=== PATIENT | female | born 1950 | race Caucasian/White ===

== ENCOUNTER 2017-09-08 10:07 | Emergency (ER) | payer OTHER ==
[~2017-09-08] VITALS: Ht 162.6 cm; Wt 122.4 kg
[~2017-09-08 10:07] MED LIST: CITA20TA4 PO; HYDR50 PO; HYDRO2.5%T TOP; IRONTAB5 PO; LISI-363 PO; QUEN12.5 OR
[2017-09-08 10:14] VITALS: BP 210/87; PULSE 67; RESP 16; TEMP 98.7; O2SAT 97
[2017-09-08] MEDS ORDERED: ALPR.5 PO (10:28)
[2017-09-08] MEDS ORDERED: DESV5TAB PO (10:28)
[2017-09-08] MEDS ORDERED: CARB100C CHEW (10:28)
[2017-09-08] MEDS ORDERED: TYLETAB34 PO (11:16)
--- NOTE | 2017-09-08 11:17 | RADRPT ---
EXAM DATE/TIME: 09/08/2017 10:48 CORRECTION Corrected on: September 08, 2017; [facility] COMPARISON: No previous studies available for comparison. INDICATIONS : Tripped and fell, right lateral foot pain MEDICAL HISTORY : None. SURGICAL HISTORY : None. ENCOUNTER: Initial ACUITY: 3 days PAIN SCORE: 7/10 LOCATION: Right lateral foot FINDINGS: There is 8 minimally displaced fracture proximal phalanx fifth toe. No other fractures appreciated. CONCLUSION: Fracture proximal fifth toe. Jose Ramon Locke MD FACR on September 08, 2017 at 11:13 Board Certified Radiologist. This report was verified electronically. Jose Ramon Locke MD FACR on September 08, 2017 at 11:30 Board Certified Radiologist. This report was verified electronically.
--- NOTE | 2017-09-08 11:18 | PD ---
HPI Chief Complaint: Musculoskeletal Complaint Time Seen by Provider: 10:18 Travel History International Travel<30 days: No Contact w/Intl Traveler<30days: No Traveled to known affect area: No History of Present Illness HPI This is a 66-year-old female here with right foot pain after she tripped on a Toy yesterday evening. Did not fall to the ground. No head injury or loss of consciousness. No paresthesia or weakness of the 70. She has pain with weightbearing on the foot which is relieved with rest. She is also complaining of mild URI-like symptoms 3 days. The symptoms include nasal congestion, sore throat, cough. Denies fever, chills, myalgias. PFSH Past Medical History Anemia: Yes Anxiety: Yes Depression: Yes Gastrointestinal Disorders: Yes (BARIATRIC SURGERY 1997, "TUMMY TUCK") Hypertension: Yes Medical other: Yes (TMJ) Tetanus Vaccination: > 5 Years Influenza Vaccination: No ?: Not Menopausal: Yes Past Surgical History Abdominal Surgery: Yes (gastric bypass and tummy tuck) Cholecystectomy: Yes Tonsillectomy: Yes Social History Alcohol Use: Yes (rarely) Tobacco Use: No Substance Use: No Allergies-Medications (Allergen,Severity, Reaction): Coded Allergies: No Known Allergies (Unverified Adverse Reaction, Unknown, 09/08/17) Reported Meds & Prescriptions Reported Meds & Active Scripts Active Reported Carbamazepine 100 Mg Chew 100 Mg CHEW TID Khedezla 24 HR (Desvenlafaxine Succinate) 50 Mg Tab 50 Mg PO DAILY Review of Systems Except as stated in HPI: all other systems reviewed are Neg General / Constitutional: No: Fever Physical Exam Narrative GENERAL: Alert and nontoxic appearing 66-year-old female SKIN: Warm and dry. No rash HEAD: Normocephalic. Atraumatic EYES: No injection or drainage. Pupils equal, round, reactive. EARS/NOSE/THROAT: No TM erythema. Clear nasal discharge. Mild pharyngeal erythema without tonsilar hypertrophy or exudate. NECK: Supple, trachea midline. No meningismus CARDIOVASCULAR: Regular rate and rhythm RESPIRATORY: Breath sounds equal bilaterally. No accessory muscle use. No wheezing, rales, rhonchi. GASTROINTESTINAL: Abdomen soft, non-tender, nondistended. MUSCULOSKELETAL: No cyanosis. Right foot: Tenderness over the distal aspect of the fifth metatarsal. No deformity. Minimal swelling. Patient can flex and extend all toes. 2+ dorsal pedis pulse. Brisk cap refill. Data Data Last Documented VS Vital Signs Date Time Temp Pulse Resp B/P (MAP) Pulse Ox O2 Delivery O2 Flow Rate FiO2 09/08/17 10:14 98.7 67 16 210/87 (128) 97 Orders Orders Foot, Complete ([id number]) (09/08/17 ) Splint Or Brace Apply/Monitor (09/08/17 11:09) MDM Medical Decision Making Medical Screen Exam Complete: Yes Emergency Medical Condition: Yes Differential Diagnosis Metatarsal fracture, toe fracture, sprain, contusion, URI Narrative Course This is a 66-year-old female here with right foot pain after she twisted the foot yesterday evening. The extremity is neurovascularly intact. No deformity. She also has mild URI-like illness. I do not suspect influenza. X- ray show a proximal fifth phalanx fracture. Patient was put in a postop shoe. Crutches were offered. Pain medication. Rest, ice, elevate the extremity. 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 Diagnosis Primary Impression: Fracture of proximal phalanx of lesser toe of right foot Qualified Codes: S92.514A - Nondisplaced fracture of proximal phalanx of right lesser toe(s), initial encounter for closed fracture Additional Impression: URI (upper respiratory infection) Qualified Codes: J06.9 - Acute upper respiratory infection, unspecified Referrals: Mario Belle DPM Additional Instructions: Rest, ice, elevate the extremity. Postop shoe as directed. Crutches or cane for weightbearing as needed. Make a follow-up appointment with Dr. Belle. Scripts Acetaminophen-Codeine (Tylenol-Codeine #3) 300-30 mg Tab 1-2 TAB PO Q6H Y for PAIN, #12 TAB 0 Refills Prov: Ayde Lo 09/08/17 Ayde Lo Sep 08, 2017 11:18
== END 2017-09-08 11:39 | disposition home or self-care (01) ==
LOC: PHEFT 10:07
DX: S92.511A Displaced fracture of proximal phalanx of right lesser toe(s), initial encounter for closed fracture (principal); J06.9 Acute upper respiratory infection, unspecified; I10 Essential (primary) hypertension; F32.9 Major depressive disorder, single episode, unspecified; F41.9 Anxiety disorder, unspecified; W22.8XXA Striking against or struck by other objects, initial encounter; Z98.84 Bariatric surgery status; Z79.899 Other long term (current) drug therapy
CPT/HCPCS: 73630; 99283; L3260

== ENCOUNTER 2017-10-08 16:37 | Emergency (ER) | payer OTHER ==
[~2017-10-08] VITALS: Ht 162.6 cm; Wt 126.0 kg
[2017-10-08 16:37] VITALS: BP 179/76; PULSE 129; RESP 24; TEMP 97.9; O2SAT 97
[~2017-10-08 16:37] MED LIST changes: +ALPR.5 PO; +CARB100C CHEW; -CITA20TA4 PO; +DESV5TAB PO; -HYDR50 PO; -HYDRO2.5%T TOP; -IRONTAB5 PO; -LISI-363 PO; -QUEN12.5 OR; +TYLETAB34 PO
[2017-10-08] MEDS ORDERED: SODIUM CHLORIDE 0.9% FLUSH 10 ML FLUSH IV FLUSH PRN (16:45)
[2017-10-08] MEDS ORDERED: DILTIAZEM HCL 25 MG/5 ML VIAL IV PUSH ONE (16:45)
[2017-10-08 16:59] VITALS: BP 115/73; PULSE 80; RESP 16; O2SAT 95
[2017-10-08] MEDS ORDERED: RIVAROXABAN 15 MG TAB PO ONE (17:00)
[2017-10-08] MEDS ORDERED: DILTIAZEM-CD 240 MG CAP ER PO ONE (17:00)
[2017-10-08] MEDS ORDERED: ASPIRIN 81 MG CHEW TAB PO ONE (17:00)
[2017-10-08] MEDS ORDERED: SODIUM CHLORIDE 0.9% FLUSH 10 ML FLUSH IVF PRN (17:00)
[2017-10-08] MEDS ORDERED: CARD180C5 PO (17:04)
[2017-10-08 17:06] VITALS: BP 115/73; PULSE 91; RESP 18; TEMP 97.9; O2SAT 95
[2017-10-08] MEDS ORDERED: XARE20TA PO (17:06)
--- NOTE | 2017-10-08 17:06 | PD ---
HPI . Shortness of breath Chief Complaint: Shortness of breath Time Seen by Provider: 16:43 Travel History International Travel<30 days: No Contact w/Intl Traveler<30days: No History of Present Illness HPI This patient presents with a 3 week history of shortness of breath. She especially has dyspnea on exertion. She states that she is not short of breath at rest. She had no idea that her heart was beating too fast. However, she states that she seen as an outpatient for an iron infusion 3 weeks ago and was found to be tachycardic. She was advised to come to the emergency department at that time for evaluation but did not do so. She attributed her symptoms to anxiety. She states that she presented to us today simply because her symptoms have persisted. There was no no acute change that brought her in today. PFSH Past Medical History Anemia: Yes Anxiety: Yes Depression: Yes Gastrointestinal Disorders: Yes (BARIATRIC SURGERY 1997, "TUMMY TUCK") Hypertension: Yes Menopausal: Yes Past Surgical History Abdominal Surgery: Yes (gastric bypass and tummy tuck) Cholecystectomy: Yes Tonsillectomy: Yes Social History Alcohol Use: Yes (rarely) Tobacco Use: No Substance Use: No Allergies-Medications (Allergen,Severity, Reaction): Coded Allergies: No Known Allergies (Unverified Adverse Reaction, Unknown, 10/08/17) Reported Meds & Prescriptions Reported Meds & Active Scripts Active Xarelto (Rivaroxaban) 20 Mg Tab 20 Mg PO DAILY Cardizem CD 24 HR (Diltiazem CD 24 HR) 180 Mg Caper 180 Mg PO DAILY Reported Carbamazepine 100 Mg Chew 100 Mg CHEW TID Xanax (Alprazolam) 0.5 Mg Tab 0.5 Mg PO DAILY PRN Khedezla 24 HR (Desvenlafaxine Succinate) 50 Mg Tab 50 Mg PO DAILY Review of Systems Except as stated in HPI: all other systems reviewed are Neg Respiratory: Positive: Shortness of Breath Physical Exam Narrative GENERAL: Awake and alert. SKIN: warm/dry. Normal color and turgor. HEAD: Normocephalic. Atraumatic. EYES: Pupils equal and round. No scleral icterus. No injection or drainage. ENT: No nasal bleeding or discharge. Mucous membranes pink and moist. NECK: Trachea midline. Full range of motion without pain.. CARDIOVASCULAR: Irregular rhythm with a rate variable between about 110 and 150. RESPIRATORY: No accessory muscle use. Clear to auscultation. Breath sounds equal bilaterally. GASTROINTESTINAL: Abdomen soft. Nontender. Bowel sounds present. Nondistended. MUSCULOSKELETAL: No obvious deformities. NEUROLOGICAL: Awake and alert. No obvious cranial nerve deficits. Motor grossly within normal limits. Normal speech. PSYCHIATRIC: Appropriate mood and affect; insight and judgment normal. Data Data Last Documented VS Vital Signs Date Time Temp Pulse Resp B/P (MAP) Pulse Ox O2 Delivery O2 Flow Rate FiO2 10/08/17 18:36 88 18 149/78 (101) 96 Room Air 10/08/17 17:22 2.00 10/08/17 17:06 97.9 Orders Orders Ecg Monitoring (10/08/17 16:43) Blood Pressure (10/08/17 16:43) Iv Access Insert/Monitor (10/08/17 16:43) Oximetry (10/08/17 16:43) Vital Signs (10/08/17 16:43) Diltiazem Inj (Cardizem Inj) (10/08/17 16:45) Sodium Chloride 0.9% Flush (Ns Flush) (10/08/17 16:45) Basic Metabolic Panel (Bmp) (10/08/17 16:51) Complete Blood Count With Diff (10/08/17 16:51) Magnesium (Mg) (10/08/17 16:51) Prothrombin Time / Inr (Pt) (10/08/17 16:51) Act Partial Throm Time (Ptt) (10/08/17 16:51) Troponin I (10/08/17 16:51) Chest, Single Ap (10/08/17 16:51) Aspirin Chew (Aspirin Chew) (10/08/17 17:00) Sodium Chloride 0.9% Flush (Ns Flush) (10/08/17 17:00) Thyroid Stimulating Hormone (10/08/17 16:51) Rivaroxaban (Xarelto) (10/08/17 17:00) Diltiazem Cd (Cardizem Cd) (10/08/17 17:00) Rivaroxaban (Xarelto) (10/08/17 17:15) Labs Laboratory Tests Test 10/08/17 17:00 White Blood Count 5.6 TH/MM3 Red Blood Count 4.03 MIL/MM3 Hemoglobin 11.1 GM/DL Hematocrit 33.9 % Mean Corpuscular Volume 84.3 FL Mean Corpuscular Hemoglobin 27.6 PG Mean Corpuscular Hemoglobin Concent 32.8 % Red Cell Distribution Width 18.8 % Platelet Count 250 TH/MM3 Mean Platelet Volume 8.7 FL Neutrophils (%) (Auto) 69.0 % Lymphocytes (%) (Auto) 18.9 % Monocytes (%) (Auto) 9.9 % Eosinophils (%) (Auto) 1.3 % Basophils (%) (Auto) 0.9 % Neutrophils # (Auto) 3.7 TH/MM3 Lymphocytes # (Auto) 1.1 TH/MM3 Monocytes # (Auto) 0.6 TH/MM3 Eosinophils # (Auto) 0.1 TH/MM3 Basophils # (Auto) 0.1 TH/MM3 CBC Comment DIFF FINAL Differential Comment Prothrombin Time 10.7 SEC Prothromb Time International Ratio 1.1 RATIO Activated Partial Thromboplast Time 26.0 SEC Blood Urea Nitrogen 12 MG/DL Creatinine 0.68 MG/DL Random Glucose 93 MG/DL Calcium Level 8.5 MG/DL Magnesium Level 2.1 MG/DL Sodium Level 142 MEQ/L Potassium Level 4.1 MEQ/L Chloride Level 106 MEQ/L Carbon Dioxide Level 28.5 MEQ/L Anion Gap 8 MEQ/L Estimat Glomerular Filtration Rate 87 ML/MIN Troponin I LESS THAN 0.02 NG/ML Thyroid Stimulating Hormone 3rd Gen 2.200 uIU/ML MDM Medical Decision Making Medical Screen Exam Complete: Yes Emergency Medical Condition: Yes Interpretation(s) EKG shows atrial fibrillation. No acute ischemic changes. Differential Diagnosis Differential diagnosis of dyspnea includes but is not limited to congestive heart failure, pneumonia, wheezing, pneumothorax, pulmonary embolism Narrative Course This patient presents with the complaint of dyspnea, especially dyspnea on exertion. This has been ongoing for at least 3 weeks. On arrival here, she was found to be in atrial fibrillation with a rapid ventricular response. She had no idea that she had an irregular heart rhythm. She denies any previous similar history. An IV was established and she was given a Cardizem bolus. Her heart rate has quickly come down to about 80 and she states that she feels much better. I have ordered an oral dose of Cardizem along with a dose of Xarelto. Chest x- ray and lab work are in process. CBC & BMP Diagram 10/08/17 17:00 Calcium Level 8.5, Magnesium Level 2.1 trop < 0.02 TSH 2.2 CXR: 1. There is an interstitial changes bilaterally which could be chronic versus edema. 2. Moderate cardiomegaly. 3. No focal parenchymal infiltrates The chest x-ray was independently viewed by me. The patient has been ambulated about the department. She no longer has dyspnea on exertion. She will be discharged to home with prescriptions for Cardizem and Xarelto and instructions to keep her appointment with her primary care provider this week. Diagnosis Primary Impression: Atrial fibrillation with rapid ventricular response Referrals: Delaney Valentine MD 3 days Patient Instructions: A-fib (Atrial Fibrillation) (DC), General Instructions Med/Other Pt SpecificInfo: Prescription(s) given Scripts Rivaroxaban (Xarelto) 20 Mg Tab 20 MG PO DAILY for Blood Clot Prevention, #30 TAB 0 Refills Prov: Lakeshia Restrepo MD 10/08/17 Diltiazem CD 24 HR (Cardizem CD 24 HR) 180 Mg Caper 180 MG PO DAILY, #30 CAP 0 Refills Prov: Lakeshia Restrepo MD 10/08/17 Disposition: 01 DISCHARGE HOME Condition: Stable Lakeshia Restrepo MD Oct 08, 2017 17:06
[2017-10-08 17:09] LABS: AUTOMATED NEUTROPHIL # 3.7 TH/MM3 (1.8-7.7); BASOPHIL # 0.1 TH/MM3 (0-0.2); BASOPHIL % 0.9 % (0.0-2.0); EOSINOPHIL # 0.1 TH/MM3 (0-0.4); EOSINOPHIL % 1.3 % (0.0-4.0); HEMATOCRIT 33.9 % (35.0-46.0); HEMOGLOBIN 11.1 GM/DL (11.6-15.3); LYMPH % 18.9 % (9.0-44.0); LYMPHOCYTE # 1.1 TH/MM3 (1.0-4.8); MEAN CELL VOLUME 84.3 FL (80.0-100.0); MEAN CORPUSCULAR HEMOGLOBIN 27.6 PG (27.0-34.0); MEAN CORPUSCULAR HGB CONC 32.8 % (32.0-36.0); MEAN PLATELET VOLUME 8.7 FL (7.0-11.0); MONO % 9.9 % (0.0-8.0); MONOCYTE # 0.6 TH/MM3 (0-0.9); PLATELET COUNT 250 TH/MM3 (150-450); RED BLOOD COUNT 4.03 MIL/MM3 (4.00-5.30); RED CELL DISTRIBUTION WIDTH 18.8 % (11.6-17.2); WHITE BLOOD COUNT 5.6 TH/MM3 (4.0-11.0)
[2017-10-08 17:15] LABS: CHLORIDE 106 MEQ/L (98-107); SODIUM (NA) 142 MEQ/L (136-145)
[2017-10-08] MEDS ORDERED: RIVAROXABAN 20 MG TAB PO ONE (17:15)
[2017-10-08 17:17] LABS: CALCIUM 8.5 MG/DL (8.5-10.1)
[2017-10-08 17:18] LABS: BICARBONATE 28.5 MEQ/L (21.0-32.0); BLOOD UREA NITROGEN 12 MG/DL (7-18); GLUCOSE,RANDOM 93 MG/DL (74-106); MAGNESIUM 2.1 MG/DL (1.5-2.5)
[2017-10-08 17:20] LABS: INTERNATIONAL NORMALIZED RATIO 1.1 RATIO; PROTHROMBIN TIME - PATIENT 10.7 SEC (9.8-11.6)
[2017-10-08 17:21] LABS: CREATININE 0.68 MG/DL (0.50-1.00); GLOMERULAR FILTRATION RATE 87 ML/MIN (>89)
[2017-10-08 17:22] VITALS: BP 134/81; PULSE 71; RESP 16; O2SAT 95
[2017-10-08 17:26] LABS: TROPONIN I LESS THAN 0.02 NG/ML (0.02-0.05)
--- NOTE | 2017-10-08 18:11 | RADRPT ---
EXAM DATE/TIME: 10/08/2017 17:44 [facility] COMPARISON: No previous studies available for comparison. INDICATIONS : Shortness of breath. MEDICAL HISTORY : None. SURGICAL HISTORY : None. ENCOUNTER: Initial ACUITY: 2 days PAIN SCORE: 0/10 LOCATION: Bilateral chest FINDINGS: A single view of the chest demonstrates the lungs to be symmetrically aerated without evidence of mas s, infiltrate or effusion. There is increased changes are seen bilaterally. The heart size is enlarge d.. Osseous structures are intact. CONCLUSION: 1. There is an interstitial changes bilaterally which could be chronic versus edema. 2. Moderate cardiomegaly. 3. No focal parenchymal infiltrates. Patricio Mckeon MD on October 08, 2017 at 18:08 Board Certified Radiologist. This report was verified electronically.
[2017-10-08 18:36] VITALS: BP 149/78; PULSE 88; RESP 18; O2SAT 96
--- NOTE | 2017-10-09 15:27 | EKG ---
Date Performed: 10/08/2017 Time Performed: 16:41:37 PTAGE: 67 years EKG: ATRIAL FIBRILLATION WITH RAPID VENTRICULAR RESPONSE BORDERLINE LEFT AXIS DEVIATION NONSPECI FIC T-WAVE ABNORMALITY Compared to previous tracing, atrial fibrillation is new. Clinical correlation is recommended ABNORMAL RHYTHM ECG PREVIOUS TRACING : 02/13/2013 21.49 DOCTOR: Abram Veronica Interpretating Date/Time 10/09/2017 15:26:48
== END 2017-10-08 19:04 | disposition home or self-care (01) ==
LOC: PHED 16:37
DX: I48.91 Unspecified atrial fibrillation (principal); I51.7 Cardiomegaly; R06.02 Shortness of breath; R94.31 Abnormal electrocardiogram [ECG] [EKG]; D64.9 Anemia, unspecified; F41.9 Anxiety disorder, unspecified; F32.9 Major depressive disorder, single episode, unspecified; I10 Essential (primary) hypertension; Z79.899 Other long term (current) drug therapy
CPT/HCPCS: 71045; 80048; 83735; 84443; 84484; 85025; 85610; 85730; 93005; 96374

== ENCOUNTER 2017-10-11 11:00 | Inpatient (IN) | payer OTHER, MEDICARE ==
[~2017-10-11] VITALS: Ht 162.6 cm; Wt 125.7 kg
[2017-10-11] VITALS (9 sets, daily range): BP systolic 111–154; BP diastolic 71–99; PULSE 81–130; RESP 16–20; TEMP 96.6–98.5; O2SAT 97–100
[~2017-10-11 11:00] MED LIST changes: +CARD180C5 PO; -TYLETAB34 PO; +XARE20TA PO
[2017-10-11] MEDS ORDERED: SODIUM CHLORIDE 0.9% FLUSH 10 ML FLUSH IVF PRN (11:15)
[2017-10-11] MEDS ORDERED: DILTIAZEM HCL 25 MG/5 ML VIAL IV PUSH ONE (11:15)
--- NOTE | 2017-10-11 11:23 | PD ---
HPI Chief Complaint: Cardiac Complaint Time Seen by Provider: 11:07 Travel History International Travel<30 days: No Contact w/Intl Traveler<30days: No Traveled to known affect area: No History of Present Illness HPI This is a 67-year-old female who presents for dyspnea and atrial fibrillation. On October 08, the patient was seen in the emergency department and diagnosed with atrial fibrillation. She received a single dose of IV Cardizem and had improvement in her heart rate. She was discharged on Cardizem and Xarelto. Patient states she has been compliant with these medications. She states that she does still have some dyspnea with exertion. No dyspnea at rest. She does have mild chest tightness if she becomes emotionally stressed. She is not otherwise having chest pain. No diaphoresis. She has had increase in bilateral lower extremity edema. She has gained 6 pounds in a week. She saw her primary physician today and was referred to the emergency department. Symptoms are moderate in severity. Onset gradual. Partially alleviated by Cardizem. She denies associated fever, chills, cough, congestion. PFSH Past Medical History Anemia: Yes Atrial Fibrillation: Yes Anxiety: Yes Depression: Yes Cardiovascular Problems: Yes (heart murmur) Diminished Hearing: No Gastrointestinal Disorders: Yes (BARIATRIC SURGERY 1997, "TUMMY TUCK") Hypertension: Yes Immunizations Current: Yes Menopausal: Yes Past Surgical History Abdominal Surgery: Yes (gastric bypass and tummy tuck) Cholecystectomy: Yes Tonsillectomy: Yes Social History Alcohol Use: Yes (rarely) Tobacco Use: No Substance Use: No Allergies-Medications (Allergen,Severity, Reaction): Coded Allergies: No Known Allergies (Unverified Adverse Reaction, Unknown, 10/11/17) Reported Meds & Prescriptions Reported Meds & Active Scripts Active Xarelto (Rivaroxaban) 20 Mg Tab 20 Mg PO DAILY Cardizem CD 24 HR (Diltiazem CD 24 HR) 180 Mg Caper 180 Mg PO DAILY Reported Carbamazepine 100 Mg Chew 100 Mg CHEW TID Xanax (Alprazolam) 0.5 Mg Tab 0.5 Mg PO DAILY PRN Khedezla 24 HR (Desvenlafaxine Succinate) 50 Mg Tab 50 Mg PO DAILY Review of Systems Except as stated in HPI: all other systems reviewed are Neg Physical Exam Narrative GENERAL: Alert, well nourished, well appearing patient resting on the bed in no acute distress. Vital Signs reviewed SKIN: Focused skin assessment warm/dry. HEAD: Atraumatic. Normocephalic. EYES: Pupils equal and round. No scleral icterus. No injection or drainage. ENT: No nasal bleeding or discharge. Mucous membranes pink and moist. NECK: Trachea midline. No JVD. Spontaneous, painless full range of motion with no meningismus CARDIOVASCULAR: Tachycardic with an irregularly irregular rhythm. No murmur appreciated. Extremities warm and well perfused with bounding peripheral pulses. Symmetric bilateral lower extremity edema to mid smith. RESPIRATORY: No accessory muscle use. Clear to auscultation. Breath sounds equal bilaterally. Breathing easily and speaking in full sentences GASTROINTESTINAL: Abdomen soft, non-tender, nondistended. Normal bowel sounds. No rigid, rebound, guarding MUSCULOSKELETAL: No obvious deformities. No clubbing. No cyanosis. Compartments are soft NEUROLOGICAL: Awake and alert. No obvious cranial nerve deficits. Motor grossly within normal limits. Normal speech. Sensation intact. Normal gait Data Data Last Documented VS Vital Signs Date Time Temp Pulse Resp B/P (MAP) Pulse Ox O2 Delivery O2 Flow Rate FiO2 10/11/17 11:54 81 10/11/17 11:53 18 97 Room Air 10/11/17 11:15 97.0 Orders Orders Electrocardiogram (10/11/17 11:15) B-Type Natriuretic Peptide (10/11/17 11:15) Ckmb (Isoenzyme) Profile (10/11/17 11:15) Complete Blood Count With Diff (10/11/17 11:15) Comprehensive Metabolic Panel (10/11/17 11:15) Magnesium (Mg) (10/11/17 11:15) Prothrombin Time / Inr (Pt) (10/11/17 11:15) Act Partial Throm Time (Ptt) (10/11/17 11:15) Troponin I (10/11/17 11:15) Ecg Monitoring (10/11/17 11:15) Bilateral Bp Monitoring (10/11/17 11:15) Iv Access Insert/Monitor (10/11/17 11:15) Oximetry (10/11/17 11:15) Sodium Chloride 0.9% Flush (Ns Flush) (10/11/17 11:15) Chest, Pa & Lat (10/11/17 11:15) Diltiazem Inj (Cardizem Inj) (10/11/17 11:15) Furosemide Inj (Lasix Inj) (10/11/17 12:15) Labs Laboratory Tests Test 10/11/17 11:25 White Blood Count 4.4 TH/MM3 Red Blood Count 4.25 MIL/MM3 Hemoglobin 11.0 GM/DL Hematocrit 35.5 % Mean Corpuscular Volume 83.5 FL Mean Corpuscular Hemoglobin 25.8 PG Mean Corpuscular Hemoglobin Concent 30.9 % Red Cell Distribution Width 18.1 % Platelet Count 261 TH/MM3 Mean Platelet Volume 8.2 FL Neutrophils (%) (Auto) 76.9 % Lymphocytes (%) (Auto) 13.5 % Monocytes (%) (Auto) 7.9 % Eosinophils (%) (Auto) 1.0 % Basophils (%) (Auto) 0.7 % Neutrophils # (Auto) 3.5 TH/MM3 Lymphocytes # (Auto) 0.6 TH/MM3 Monocytes # (Auto) 0.3 TH/MM3 Eosinophils # (Auto) 0.0 TH/MM3 Basophils # (Auto) 0.0 TH/MM3 CBC Comment DIFF FINAL Differential Comment Prothrombin Time 11.1 SEC Prothromb Time International Ratio 1.1 RATIO Activated Partial Thromboplast Time 28.0 SEC Blood Urea Nitrogen 12 MG/DL Creatinine 0.74 MG/DL Random Glucose 85 MG/DL Total Protein 7.1 GM/DL Albumin 3.5 GM/DL Calcium Level 8.5 MG/DL Magnesium Level 2.0 MG/DL Alkaline Phosphatase 149 U/L Aspartate Amino Transf (AST/SGOT) 34 U/L Alanine Aminotransferase (ALT/SGPT) 34 U/L Total Bilirubin 0.5 MG/DL Sodium Level 139 MEQ/L Potassium Level 4.5 MEQ/L Chloride Level 105 MEQ/L Carbon Dioxide Level 29.3 MEQ/L Anion Gap 5 MEQ/L Estimat Glomerular Filtration Rate 79 ML/MIN Total Creatine Kinase 63 U/L Troponin I LESS THAN 0.02 NG/ML B-Type Natriuretic Peptide 291 PG/ML MDM Medical Decision Making Medical Screen Exam Complete: Yes Emergency Medical Condition: Yes Medical Record Reviewed: Yes Interpretation(s) EKG shows atrial fibrillation with rapid ventricular response. Rate 119. No STEMI Laboratory Tests Test 10/11/17 11:25 White Blood Count 4.4 TH/MM3 Red Blood Count 4.25 MIL/MM3 Hemoglobin 11.0 GM/DL Hematocrit 35.5 % Mean Corpuscular Volume 83.5 FL Mean Corpuscular Hemoglobin 25.8 PG Mean Corpuscular Hemoglobin Concent 30.9 % Red Cell Distribution Width 18.1 % Platelet Count 261 TH/MM3 Mean Platelet Volume 8.2 FL Neutrophils (%) (Auto) 76.9 % Lymphocytes (%) (Auto) 13.5 % Monocytes (%) (Auto) 7.9 % Eosinophils (%) (Auto) 1.0 % Basophils (%) (Auto) 0.7 % Neutrophils # (Auto) 3.5 TH/MM3 Lymphocytes # (Auto) 0.6 TH/MM3 Monocytes # (Auto) 0.3 TH/MM3 Eosinophils # (Auto) 0.0 TH/MM3 Basophils # (Auto) 0.0 TH/MM3 CBC Comment DIFF FINAL Differential Comment Prothrombin Time 11.1 SEC Prothromb Time International Ratio 1.1 RATIO Activated Partial Thromboplast Time 28.0 SEC Blood Urea Nitrogen 12 MG/DL Creatinine 0.74 MG/DL Random Glucose 85 MG/DL Total Protein 7.1 GM/DL Albumin 3.5 GM/DL Calcium Level 8.5 MG/DL Magnesium Level 2.0 MG/DL Alkaline Phosphatase 149 U/L Aspartate Amino Transf (AST/SGOT) 34 U/L Alanine Aminotransferase (ALT/SGPT) 34 U/L Total Bilirubin 0.5 MG/DL Sodium Level 139 MEQ/L Potassium Level 4.5 MEQ/L Chloride Level 105 MEQ/L Carbon Dioxide Level 29.3 MEQ/L Anion Gap 5 MEQ/L Estimat Glomerular Filtration Rate 79 ML/MIN Total Creatine Kinase 63 U/L Troponin I LESS THAN 0.02 NG/ML B-Type Natriuretic Peptide 291 PG/ML Last 24 hours Impressions Chest X-Ray 10/11/17 1115 Signed Impressions: Service Date/Time: Wednesday, October 11, 2017 11:29 - CONCLUSION: Cardiomegaly with mild interstitial edema consistent with failure. Jose Ramon Locke MD FACR Differential Diagnosis Atrial fibrillation, electrolyte abnormality, CHF, fluid overload, unstable angina Narrative Course The patient was placed on the monitoring analyst. IV access was established. EKG , labs, imaging were performed. Patient was given IV Cardizem with improvement in heart rate. Her workup reveals atrial fibrillation and fluid overload. Plan for admission for further evaluation and care. I reviewed the results of the workup with her. Diagnosis Primary Impression: Atrial fibrillation with rapid ventricular response Additional Impression: CHF (congestive heart failure) Qualified Codes: I50.9 - Heart failure, unspecified Sandra Soria MD Oct 11, 2017 11:23
[2017-10-11 11:30] LABS: AUTOMATED NEUTROPHIL # 3.5 TH/MM3 (1.8-7.7); BASOPHIL % 0.7 % (0.0-2.0); HEMATOCRIT 35.5 % (35.0-46.0); LYMPH % 13.5 % (9.0-44.0); LYMPHOCYTE # 0.6 TH/MM3 (1.0-4.8); MEAN CELL VOLUME 83.5 FL (80.0-100.0); MEAN CORPUSCULAR HEMOGLOBIN 25.8 PG (27.0-34.0); MEAN CORPUSCULAR HGB CONC 30.9 % (32.0-36.0); MEAN PLATELET VOLUME 8.2 FL (7.0-11.0); MONO % 7.9 % (0.0-8.0); MONOCYTE # 0.3 TH/MM3 (0-0.9); NEUT % 76.9 % (16.0-70.0); PLATELET COUNT 261 TH/MM3 (150-450); RED BLOOD COUNT 4.25 MIL/MM3 (4.00-5.30); RED CELL DISTRIBUTION WIDTH 18.1 % (11.6-17.2); WHITE BLOOD COUNT 4.4 TH/MM3 (4.0-11.0)
--- NOTE | 2017-10-11 11:40 | RADRPT ---
EXAM DATE/TIME: 10/11/2017 11:29 [facility] COMPARISON: No previous studies available for comparison. INDICATIONS : Chest pressure. Short of breath x few weeks. Lower extremity edema. MEDICAL HISTORY : Heart murmur. A-fib. SURGICAL HISTORY : Tonsillectomy. Cholecystectomy. Gastric bypass. ENCOUNTER: Initial ACUITY: 1 day PAIN SCORE: 0/10 LOCATION: chest FINDINGS: Cardiomegaly with mild interstitial edema consistent with congestive failure. No pleural effusion. No inflammatory infiltrate. The portion of the bony skeleton visualized is unremarkable. CONCLUSION: Cardiomegaly with mild interstitial edema consistent with failure. Jose Ramon Locke MD FACR on October 11, 2017 at 11:39 Board Certified Radiologist. This report was verified electronically.
[2017-10-11 11:41] LABS: CHLORIDE 105 MEQ/L (98-107); SODIUM (NA) 139 MEQ/L (136-145)
[2017-10-11 11:45] LABS: ALBUMIN 3.5 GM/DL (3.4-5.0); BICARBONATE 29.3 MEQ/L (21.0-32.0); BLOOD UREA NITROGEN 12 MG/DL (7-18); CALCIUM 8.5 MG/DL (8.5-10.1); GLUCOSE,RANDOM 85 MG/DL (74-106)
[2017-10-11 11:46] LABS: INTERNATIONAL NORMALIZED RATIO 1.1 RATIO; PROTHROMBIN TIME - PATIENT 11.1 SEC (9.8-11.6)
[2017-10-11 11:48] LABS: ALT (GPT) 34 U/L (10-53); AST (GOT) 34 U/L (15-37); CREATININE 0.74 MG/DL (0.50-1.00); GLOMERULAR FILTRATION RATE 79 ML/MIN (>89)
[2017-10-11 11:49] LABS: TOTAL BILIRUBIN ADULT 0.5 MG/DL (0.2-1.0)
[2017-10-11 11:50] LABS: TOTAL PROTEIN 7.1 GM/DL (6.4-8.2)
[2017-10-11 11:51] LABS: ALKALINE PHOSPHATASE 149 U/L (45-117)
[2017-10-11 11:53] LABS: TROPONIN I LESS THAN 0.02 NG/ML (0.02-0.05)
[2017-10-11] MEDS ORDERED: FUROSEMIDE 20 MG/2 ML VIAL IV PUSH ONE (12:15)
--- NOTE | 2017-10-11 15:08 | HHI.HP ---
HPI Service [facility] Primary Care Physician Teja Sorensen Do, MD Admission Diagnosis Atrial fibrillation with rapid ventricular response; Acute CHF Diagnoses: Chief Complaint: swelling Travel History International Travel<30 Days: No Contact w/Intl Traveler <30 Da: No Traveled to Known Affected Are: No History of Present Illness 67-year-old white female being admitted for suspected acute systolic congestive heart failure. Patient was in her usual state of health until the last 2 weeks or so when she noted that her lower extremity edema became more prominent and more constant. She recently came to the emergency department was diagnosed with A. fib and discharged on Cardizem and Xarelto. She went to see her gas engine operator generators today but instead saw her gas engine operator generators nurse who noted that her heart rate was fluctuating up and down beyond 100. She was referred to the emergency department. In the ER she was noted to be tachycardic Pass 120. EKG which independently reviewed shows tachycardia which could either be sinus rhythm given that there are evident P waves versus atrial fibrillation. They administered IV Cardizem which slowed down the patient's heart rate substantially. Review of Systems Except as stated in HPI: all other systems reviewed are Neg Past Family Social History Past Medical History Anemia, A. fib Allergies: Coded Allergies: No Known Allergies (Unverified Adverse Reaction, Unknown, 10/11/17) Family History CAD Social History Denies ever smoking Light social drinking in the past Physical Exam Vital Signs Vital Signs Date Time Temp Pulse Resp B/P (MAP) Pulse Ox O2 Delivery O2 Flow Rate FiO2 10/11/17 14:22 96.6 119 16 121/84 (96) 99 10/11/17 14:10 92 18 138/89 (105) 10/11/17 12:56 98 18 151/99 (116) 98 Room Air 10/11/17 12:40 89 18 111/71 (84) 98 Room Air 10/11/17 11:54 81 10/11/17 11:53 100 18 126/97 (107) 97 Room Air 138/80 (99) 10/11/17 11:15 130 20 154/85 (108) 10/11/17 11:15 97.0 Room Air 10/11/17 11:15 97 10/11/17 11:03 98.5 88 20 97 Physical Exam VS: afebrile GENERAL: Standing up looking at the window, no acute distress SKIN: Warm and dry. EYES: No scleral icterus. No injection or drainage. ENT: No nasal bleeding or discharge. Mucous membranes pink and moist. CARDIOVASCULAR: regular rate and irregular rhythm. no murmurs RESPIRATORY: No accessory muscle use. Clear to auscultation. Breath sounds equal bilaterally. GASTROINTESTINAL: Abdomen soft, non-tender, nondistended. Extremities: No clubbing, cyanosis. moderate +2 pitting edema BL LEs MUSCULOSKELETAL: adequate muscle bulk and tone for age and habitus NEUROLOGICAL: Awake and alert. No obvious cranial nerve deficits. No facial droop nor slurred speech noted. PSYCHIATRIC: Appropriate mood and affect; insight and judgment normal. Laboratory Laboratory Tests Test 10/11/17 11:25 White Blood Count 4.4 Red Blood Count 4.25 Hemoglobin 11.0 Hematocrit 35.5 Mean Corpuscular Volume 83.5 Mean Corpuscular Hemoglobin 25.8 Mean Corpuscular Hemoglobin Concent 30.9 Red Cell Distribution Width 18.1 Platelet Count 261 Mean Platelet Volume 8.2 Neutrophils (%) (Auto) 76.9 Lymphocytes (%) (Auto) 13.5 Monocytes (%) (Auto) 7.9 Eosinophils (%) (Auto) 1.0 Basophils (%) (Auto) 0.7 Neutrophils # (Auto) 3.5 Lymphocytes # (Auto) 0.6 Monocytes # (Auto) 0.3 Eosinophils # (Auto) 0.0 Basophils # (Auto) 0.0 CBC Comment DIFF FINAL Differential Comment Prothrombin Time 11.1 Prothromb Time International Ratio 1.1 Activated Partial Thromboplast Time 28.0 Blood Urea Nitrogen 12 Creatinine 0.74 Random Glucose 85 Total Protein 7.1 Albumin 3.5 Calcium Level 8.5 Magnesium Level 2.0 Alkaline Phosphatase 149 Aspartate Amino Transf (AST/SGOT) 34 Alanine Aminotransferase (ALT/SGPT) 34 Total Bilirubin 0.5 Sodium Level 139 Potassium Level 4.5 Chloride Level 105 Carbon Dioxide Level 29.3 Anion Gap 5 Estimat Glomerular Filtration Rate 79 Total Creatine Kinase 63 Troponin I LESS THAN 0.02 B-Type Natriuretic Peptide 291 Result Diagram: 10/11/17 1125 10/11/17 1125 Imaging Last Impressions Chest X-Ray 10/11/17 1115 Signed Impressions: Service Date/Time: Wednesday, October 11, 2017 11:29 - CONCLUSION: Cardiomegaly with mild interstitial edema consistent with failure. Jose Ramon Locke MD FACR Capgray VTE Risk Assessment Caprini VTE Risk Assessment: Mod/High Risk (score >= 2) Caprini Risk Assessment Model Point Value = 1 Point Value = 2 Point Value = 3 Point Value = 5 Age 41-60 Minor surgery BMI > 25 kg/m2 Swollen legs Varicose veins or History of unexplained or recurrent spontaneous Oral contraceptives or hormone replacement Sepsis (< 1 month) Serious lung disease, including pneumonia (< 1 month) Abnormal pulmonary function Acute myocardial infarction Congestive heart failure (< 1 month) History of inflammatory bowel disease Medical patient at bed rest Age 61-74 Arthroscopic surgery Major open surgery (> 45 min) Laparoscopic surgery (> 45 min) Malignancy Confined to bed (> 72 hours) Immobilizing plaster cast Central venous access Age >= 75 History of VTE Family history of VTE Factor V Leiden Prothrombin [id number] Lupus anticoagulant Anticardiolipin antibodies Elevated serum homocysteine Heparin-induced thrombocytopenia Other congenital or acquired thrombophilia Stroke (< 1 month) Elective arthroplasty Hip, pelvis, or leg fracture Acute spinal cord injury (< 1 month) Prophylaxis Regimen Total Risk Factor Score Risk Level Prophylaxis Regimen 0-1 Low Early ambulation 2 Moderate Order ONE of the following: *Sequential Compression Device (SCD) *Heparin 5000 units SQ BID 3-4 Higher Order ONE of the following medications: *Heparin 5000 units SQ TID *Enoxaparin/Lovenox 40 mg SQ daily (WT < 150 kg, CrCl > 30 mL/min) *Enoxaparin/Lovenox 30 mg SQ daily (WT < 150 kg, CrCl > 10-29 mL/min) *Enoxaparin/Lovenox 30 mg SQ BID (WT < 150 kg, CrCl > 30 mL/min) AND/OR *Sequential Compression Device (SCD) 5 or more Highest Order ONE of the following medications: *Heparin 5000 units SQ TID (Preferred with Epidurals) *Enoxaparin/Lovenox 40 mg SQ daily (WT < 150 kg, CrCl > 30 mL/min) *Enoxaparin/Lovenox 30 mg SQ daily (WT < 150 kg, CrCl > 10-29 mL/min) *Enoxaparin/Lovenox 30 mg SQ BID (WT < 150 kg, CrCl > 30 mL/min) AND *Sequential Compression Device (SCD) Assessment and Plan Assessment and Plan Lower extremity edema - Suspect possible acute systolic heart failure, obtaining echocardiogram - We will diurese with Lasix twice daily, check BMP in a.m. - Intake and output A. fib - given iv Cardizem in ED, Continue home Xarelto and Cardizem, will add on Lopressor continue home meds otherwise. xarelto Physician Certification 2 Midnight Certification Type: Admission for Inpatient Services Order for Inpatient Services The services are ordered in accordance with Medicare regulations or non- Medicare payer requirements, as applicable. In the case of services not specified as inpatient-only, they are appropriately provided as inpatient services in accordance with the 2-midnight benchmark. Estimated LOS (days): 2 2 days is the estimated time the patient will need to remain in the hospital, assuming treatment plan goals are met and no additional complications. Post-Hospital Plan: Not yet determined Bentley Randall MD Oct 11, 2017 15:08
[2017-10-11] MEDS: ALPRAZolam 0.5 MG TAB PO PRN (17:39)
[2017-10-11] MEDS: METOPROLOL TARTRATE 25 MG TAB PO SCH ×2 (17:39→21:31)
[2017-10-11] MEDS ORDERED: POTASSIUM CHLORIDE 10 MEQ CONTROLLED RELEASE TAB PO ONE (18:00)
[2017-10-11] MEDS: FUROSEMIDE 40 MG/4 ML VIAL IV PUSH SCH (18:46)
[2017-10-11] MEDS ORDERED: DILTIAZEM-CD 180 MG CAP ER PO SCH (21:00)
[2017-10-12] VITALS: BP 125/69; PULSE 108; RESP 18; TEMP 95.4; O2SAT 100
[2017-10-12 04:00] VITALS: BP 120/79; PULSE 106; RESP 20; TEMP 97; O2SAT 100
[2017-10-12] MEDS: METOPROLOL TARTRATE 25 MG TAB PO SCH (06:00)
[2017-10-12 06:18] LABS: BICARBONATE 34.8 MEQ/L (21.0-32.0)
[2017-10-12 06:19] LABS: CALCIUM 8.4 MG/DL (8.5-10.1)
[2017-10-12 06:22] LABS: CREATININE 0.7 MG/DL (0.50-1.00)
[2017-10-12 08:00] VITALS: BP 134/70; PULSE 97; RESP 20; TEMP 96.4; O2SAT 97
[2017-10-12] MEDS ORDERED: RIVAROXABAN 20 MG TAB PO SCH (09:00)
[2017-10-12] MEDS ORDERED: DESVENLAFAXINE 50 MG PO SCH (09:00)
[2017-10-12] MEDS: FUROSEMIDE 40 MG/4 ML VIAL IV PUSH SCH (10:22)
[2017-10-12] MEDS: ALPRAZolam 0.5 MG TAB PO PRN (10:22)
--- NOTE | 2017-10-12 11:15 | EKG ---
Date Performed: 10/11/2017 Time Performed: 11:12:25 PTAGE: 67 years EKG: ATRIAL FIBRILLATION WITH RAPID VENTRICULAR RESPONSE BORDERLINE LEFT AXIS DEVIATION NONSPECI FIC T-WAVE ABNORMALITY ABNORMAL RHYTHM ECG Since the prior tracing, there has been no significant harjeet nge PREVIOUS TRACING : 10/08/2017 16.41 DOCTOR: Slime Dailey Interpretating Date/Time 10/12/2017 11:11:26
[2017-10-12] MEDS ORDERED: LISI2.5T3 PO (11:45)
[2017-10-12] MEDS ORDERED: METO25TA3 PO (11:45)
[2017-10-12] MEDS ORDERED: FURO1TAB62 PO (11:47)
[2017-10-12] MEDS ORDERED: KLORCONEF PO (11:47)
--- NOTE | 2017-10-12 11:47 | HHI.DCPOC ---
Discharge Care Plan Diagnosis: (1) Atrial fibrillation with rapid ventricular response (2) CHF (congestive heart failure) Goals to Promote Your Health * To prevent worsening of your condition and complications * To maintain your health at the optimal level Directions to Meet Your Goals Take your medications as prescribed Follow your dietary instruction Follow activity as directed Keep your appointments as scheduled Take your immunizations and boosters as scheduled If your symptoms worsen call your PCP, if no PCP go to Urgent Care Center or Emergency Room Smoking is Dangerous to Your Health. Avoid second hand smoke Call the 24-hour hour crisis hotline for domestic abuse at Bentley Randall MD Oct 12, 2017 11:46
--- NOTE | 2017-10-12 11:50 | ECHRPT ---
Indication: Heart failure, unspecified CONCLUSIONS The left ventricular systolic function is severely reduced with an estimated ejection fraction in th e range of 30-35%. Wall thickness is measured at the upper limits of normal. Normal left ventricular size. The left atrial size is moderately to severely dilated. Xnan-la-sraqaqnw mitral valve regurgitation. There is moderate tricuspid regurgitation. The estimated pulmonary arterial pressure is 39.4 mmHg. aortic valve sclerosis BP: / HR: Rhythm: Other MEASUREMENTS (Male / Female) Normal Values Technical Quality:Good 2D ECHO LV Diastolic Diameter PLAX 5.5 cm 4.2 - 5.9 / 3.9 - 5.3 cm LV Systolic Diameter PLAX 4.8 cm IVS Diastolic Thickness 1.1 cm 0.6 - 1.0 / 0.6 - 0.9 cm LVPW Diastolic Thickness 1.1 cm 0.6 - 1.0 / 0.6 - 0.9 cm LV Relative Wall Thickness 0.4 LVOT Diameter 2.1 cm M-MODE Aortic Root Diameter MM 2.8 cm LA Systolic Diameter MM 6.0 cm LA Ao Ratio MM 2.1 AV Cusp Separation MM 1.5 cm DOPPLER AV Peak Velocity 187.0 cm/s AV Peak Gradient 14.0 mmHg AI Peak Velocity 376.0 cm/s AI Peak Gradient 56.6 mmHg AI Pressure Half Time 1225.0 ms LVOT Peak Velocity 62.2 cm/s LVOT Peak Gradient 1.5 mmHg AV Area Cont Eq pk 1.2 cm MR Peak Velocity 366.0 cm/s MR Peak Gradient 53.6 mmHg TR Peak Velocity 271.0 cm/s TR Peak Gradient 29.4 mmHg Right Atrial Pressure 10.0 mmHg Pulmonary Artery Systolic Pressu 39.4 mmHg Right Ventricular Systolic Press 39.4 mmHg PV Peak Velocity 90.9 cm/s PV Peak Gradient 3.3 mmHg FINDINGS LEFT VENTRICLE The left ventricular systolic function is severely reduced with an estimated ejection fraction in th e range of 30-35%. Wall thickness is measured at the upper limits of normal. Normal left ventricular size. RIGHT VENTRICLE Normal right ventricular size and systolic function. LEFT ATRIUM The left atrial size is moderately to severely dilated. RIGHT ATRIUM The right atrial size is normal. ATRIAL SEPTUM Normal atrial septal thickness without atrial level shunting by limited color doppler interrogation. AORTA The aortic root and proximal ascending aorta are normal in size on limited imaging. MITRAL VALVE Wyeg-ox-vwvknvuw mitral valve regurgitation. AORTIC VALVE Trileaflet aortic valve. No aortic valve stenosis or regurgitation. TRICUSPID VALVE There is moderate tricuspid regurgitation. The estimated pulmonary arterial pressure is 39.4 mmHg. PULMONARY VALVE No pulmonary valve regurgitation or stenosis. VESSELS The inferior vena cava is normal in size. PERICARDIUM No pericardial effusion. Axel Araiza MD, FACC, [facility] (Electronically Signed) Final Date:12 October 2017 11:49
--- NOTE | 2017-10-12 11:51 | HHI.PR ---
Subjective Remarks Nursing denies any deterioration since last night. Patient thinks that her edema is even better today than yesterday. Says she is able to walk around quite a lot in the hallways, denies having any chest pain on exertion or rest. Denies any shortness of breath. Objective Vital Signs Date Time Temp Pulse Resp B/P (MAP) Pulse Ox O2 Delivery O2 Flow Rate FiO2 10/12/17 08:00 96.4 97 20 134/70 (91) 97 10/12/17 04:00 97.0 106 20 120/79 (93) 100 10/12/17 00:00 95.4 108 18 125/69 (87) 100 10/11/17 20:00 96.8 86 16 116/89 (98) 100 10/11/17 14:22 96.6 119 16 121/84 (96) 99 10/11/17 14:10 92 18 138/89 (105) 10/11/17 12:56 98 18 151/99 (116) 98 Room Air 10/11/17 12:40 89 18 111/71 (84) 98 Room Air 10/11/17 11:54 81 10/11/17 11:53 100 18 126/97 (107) 97 Room Air 138/80 (99) I/O 10/11/17 10/11/17 10/11/17 10/12/17 10/12/17 10/12/17 07:00 15:00 23:00 07:00 15:00 23:00 Intake Total 250 ml 1790 ml 480 ml Balance 250 ml 1790 ml 480 ml Intake Oral 250 ml 1790 ml 480 ml # Voids 7 4 # Bowel Movements 1 0 Result Diagram: 10/11/17 1125 10/12/17 0535 Objective Remarks Clear lungs bilaterally, heart rate is regular with irregular rhythm, very mild lower extremity edema bilaterally- improved since yesterday A/P Assessment and Plan Lower extremity edema is much improved. Echocardiogram was performed. We will discharge the patient with as needed low dose Lasix up to 40 mg a day for lower extremity edema. In regards to the patient's atrial fibrillation, we will continue her home Cardizem but also transition her from the inpatient Lopressor to 25 mg of Lopressor twice daily. Patient has met maximum benefit from hospitalization is clinically stable for discharge. Bentley Randall MD Oct 12, 2017 11:51
[2017-10-12] MEDS ORDERED: LOSA25TA PO (16:24)
== END 2017-10-12 13:25 | disposition home or self-care (01) | DRG 308 ==
LOC: PHED 11:00 → PHEDA 12:41 → OBSVTOIN 12:42 → PH3B 14:00
PROVIDERS: ADMIT Hospitalist; ATTEND Hospitalist
DX: I48.91 Unspecified atrial fibrillation (principal); I50.21 Acute systolic (congestive) heart failure; I11.0 Hypertensive heart disease with heart failure; F32.9 Major depressive disorder, single episode, unspecified; F41.9 Anxiety disorder, unspecified; R00.0 Tachycardia, unspecified; Z98.84 Bariatric surgery status
CPT/HCPCS: 71046; 80048; 80053; 82550; 83735; 83880; 84484; 85025; 85610; 85730; 93005; 93306; 96374; J1940